=== PATIENT | female | born 1965 | race Caucasian/White ===

== ENCOUNTER 2018-12-10 21:10 | Emergency (ER) | payer BC ==
[~2018-12-10] VITALS: Ht 162.6 cm; Wt 76.3 kg
[~2018-12-10 21:10] MED LIST: ALPR0.25 PO; DULO30CA2 PO; ESLI800T PO; FOLI1TAB21 PO; HYDR200T72 PO; LEVO500T51 PO; METH2.5T PO; METH20TA PO; NICO-449 TD; OLAN5TAB3 PO; VENL150C PO
[2018-12-10 21:12] VITALS: BP 126/79
--- NOTE | 2018-12-10 21:28 | ER.PDOC ---
JES JONES DO Dec 10, 2018 21:28
[2018-12-10] MEDS ORDERED: NS 1000ML 1,000 ML IV ONE (21:30)
--- NOTE | 2018-12-10 21:33 | PCM.EKG ---
[facility] Test Date: 2018-12-10 Test Time: 21:26:07 Pat Name: AGAPITO BHATIA Department: Room: Gender: F Hospital Aide: : 1965 Requested By: JES JONES Order Number: [id number] Reading MD: Jes Jones Measurements Intervals [place] Rate: 85 P: 62 VT: 172 QRS: 52 QRSD: 100 T: 49 QT: 434 QTc: 516 Interpretive Statements Normal sinus rhythm Prolonged QT Abnormal ECG Compared to ECG 02/15/2018 17:57:04 Sinus bradycardia no longer present Electronically Signed On 12-11-2018 22:00:22 [facility] by Jes Jones Please click the below link to view image of tracing.
--- NOTE | 2018-12-10 21:38 | ER.PDOC ---
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 Per , she was "seeing things, and wasn't making sense." Was stumbling some while walking, but did not fall. Pt was arrested earlier this afternoon, for unk. reason. Timing/Duration: 1-3 hours Character of AMS: confused Usually: orientedx3 Decreased Ability to Stand: off balance (slightly stumbling) Prior symptoms/Treatment: No Similar symptoms previous, No Recenly Seen, No Treated by Doctor, No Recently Hospitalized Allergies: Coded Allergies: iodine (Verified Allergy, Unknown, Anaphylaxis Shock, 04/19/16) Home Meds Active Scripts Levofloxacin (LEVAQUIN) 500 Mg Tablet, 500 MG PO DAILY24 for 4 Days, #4 TABLET Prov:WILLIS OLIVAS MD 01/16/18 Nicotine (NICOTINE PATCH) 1 Each Patch.td24, 1 EACH TD DAILY for 14 Days, #14 PATCH Prov:WILLIS OLIVAS MD 01/16/18 Reported Medications Olanzapine (ZYPREXA) 5 Mg Tablet, 1 TAB PO HS, #30 TAB 1 Refill 01/14/18 Duloxetine Hcl (CYMBALTA) 30 Mg Capsule.dr, 1 CAP PO DAILY, #30 CAP 5 Refills 01/14/18 Methylphenidate Hcl (RITALIN) 20 Mg Tablet, 1 TAB PO BID, #60 TAB 01/14/18 Alprazolam (XANAX) 0.25 Mg Tablet, 1 TAB PO TID PRN for ANXIETY, #30 TAB 01/14/18 Eslicarbazepine Acetate (Aptiom) 800 Mg Tablet, 800 MG PO HS, TABLET 01/14/18 Past Medical History Medical History: other (PTSD) Surgical History: cholecystectomy, hysterectomy Social History Drug Use: none, other Review of Systems Constitutional: no symptoms reported Eyes: no symptoms reported Ears, Nose, Mouth, Throat: no symptoms reported Respiratory: shortness of breath (slight) Cardiovascular: no symptoms reported Gastrointestinal: no symptoms reported Genitourinary: no symptoms reported Musculoskeletal: no symptoms reported Skin: no symptoms reported Psychiatric/Neurological: see HPI Endocrine: no symptoms reported Hematologic/Lymphatic: no symptoms reported Physical Exam General Appearance: alert, no distress HEENT: dry mucous membranes Neuro/Psych: other (slightly confused regarding current condition, time) Cranial Nerves: nml as tested Peripheral Exam: motor nml, sensation nml, reflexes nml Neck: supple, non-tender, no carotid bruit Respiratory: no resp distress, breath sounds nml CVS: reg rate & rhythm, heart sounds nml Abdomen: non-tender, no organomegaly, no distention Skin: color nml, no rash, warm/dry Extremities: non-tender, nml ROM, no pedal edema Results/Orders Results/Orders Laboratory Tests Test 12/10/18 21:30 12/10/18 21:35 12/10/18 21:38 12/10/18 22:47 Urine Collection Type CCMS Urine Color YELLOW (YELLOW) Urine Appearance CLEAR (CLEAR) Urine Bilirubin NEGATIVE MG/DL (NEGATIVE) Urine Ketones NEGATIVE (NEGATIVE) Urine Specific [place] 1.025 (1.005-1.035) Urine pH 5 (5.0-6.0) Urine Protein NEGATIVE (NEGATIVE) Urine Urobilinogen NORMAL (NEGATIVE) Urine Nitrate NEGATIVE (NEGATIVE) Urine Leukocyte Esterase NEGATIVE (NEGATIVE) Urine Blood NEGATIVE (NEGATIVE) Urine Glucose NORMAL (NEGATIVE) White Blood Count 12.7 10^3/uL (4.5-11.0) Red Blood Count 3.96 10^6/uL (4.00-5.20) Hemoglobin 13.0 g/dL (12.0-15.0) Hematocrit 38.6 % (36.0-46.0) Mean Corpuscular Volume 97.5 fL (78-100) Mean Corpuscular Hemoglobin 32.8 pg (26-34) Mean Corpuscular Hemoglobin Concent 33.7 g/dL (33-37) Red Cell Distribution Width 14.2 % (11.5-14.5) Platelet Count 324 10^3/uL (150-400) Mean Platelet Volume 9.6 fL (7.8-11.0) Neutrophils (%) (Auto) 57.9 % (41.0-85.0) Lymphocytes (%) (Auto) 33.9 % (24.0-44.0) Monocytes (%) (Auto) 6.0 % (5.0-12.0) Neutrophils # (Auto) 7.4 10^3/uL (1.8-7.7) Lymphocytes # (Auto) 4.3 10^3/uL (1.0-4.8) Monocytes # (Auto) 0.8 10^3/uL (0.3-0.8) Absolute Immature Granulocyte (auto 0.05 10^3 u/L (0-2) Eosinophils % 1.1 % (0.0-5.0) Basophils % 0.7 % (0.0-0.2) Basophils # 0.1 10^3/uL (0.0-0.1) Eosinophil Count 0.1 10^3/uL (0.0-0.2) Prothrombin Time 9.9 SEC (9.8-11.9) Prothrombin Time INR (Non-Therap) 1.0 Activated Partial Thromboplast Time 27.2 SEC (24.67-30.72) Sodium Level 138 mmol/L (132-145) Potassium Level 3.0 mmol/L (3.6-5.2) Chloride Level 102.0 mmol/L (96-109) Carbon Dioxide Level 23.2 mmol/L (20.0-32) Anion Gap 15.8 Blood Urea Nitrogen 11 mg/dL (7-18) Creatinine 1.14 mg/dL (0.59-1.40) Estimated GFR () 59.9 (>/=60) BUN/Creatinine Ratio 9.0 Glucose Level 164 mg/dL (70-110) Calcium Level 8.4 mg/dL (8.4-10.5) Total Bilirubin 0.5 mg/dL (0.2-1.0) Aspartate Amino Transf (AST/SGOT) 34 U/L (0-35) Alanine Aminotransferase (ALT/SGPT) 44 U/L (12-78) Alkaline Phosphatase 133 U/L (50-136) Ammonia 16 umol/L (11-35) Total Creatine Kinase 391 U/L (26-192) Troponin I < 0.02 ng/mL (0.00-0.05) Total Protein 7.7 g/dL (6.4-8.2) Albumin 3.5 g/dL (3.4-5.0) Globulin 4.2 Percent Immature Gran (Cell Imm) 0.40 % (0.00-0.50) Urine Opiates, Qualitative NEGATIVE ng/mL (CUT-OFF:300) Urine Methadone, Qualitative POSITIVE ng/mL (CUT-OFF:300) Urine Amphetamine Qualitative NEGATIVE ng/mL (CUTOFF:1000) Urine Barbiturates, Qualitative NEGATIVE ng/mL (CUT-OFF:200) Urine Phencyclidine Screen POSITIVE ng/mL (CUT-OFF:25) Urine MDMA (Ecstasy), Qualitative NEGATIVE ng/mL (CUT-OFF:300) Urine Benzodiazepines Screen POSITIVE ng/mL (CUT-OFF:200) Urine Cocaine Qualitative NEGATIVE ng/mL (CUT-OFF:300) Ur Tetrahydrocannabinol (THC) Scrn NEGATIVE ng/mL (CUT-OFF:50) Blood Gas Sample Site RT BRACIAL ARTERY Blood Gas pH 7.345 (7.350-7.450) Blood Gas PCO2 39.6 mmHg (35.0-45.0) Blood Gas PO2 63.8 mmHg (75.0-100.0) Blood Gas HCO3 21.1 mmol/L (22.0-26.0) Blood Gas Base Excess -4.2 mmol/L (-2.0-2.0) Baldo Test N/A Arterial Blood Oxygen Saturation 90.3 % (95-) Deoxyhemoglobin 9.4 % (0.2-0.6) Carboxyhemoglobin 2.8 % (0.5-1.5) Methemoglobin 0.0 % (0.2-0.6) Total Hemoglobin 12.2 % (13.5-17.5) Total Oxygen Concentration 15.1 % (13.5-17.5) Lactic Acid (Blood Gas) 2.0 MMOL/L (0.5-1.0) Oxygen Delivery Method (LAB) RA FiO2 21 % (20-101) Bicarbonate 22.3 mmol/L (23-27) Administered Medications Medications (Trade) Dose Ordered Sig/Ramakrishna Route PRN Reason Start Time Stop Time Status Last Admin Dose Admin Sodium Chloride 1,000 ml @ 0 mls/hr Q0M ONCE IV 12/10/18 21:30 12/10/18 21:31 UNV 12/10/18 22:15 Progress Progress Pt tested positive for methadone, PCP and benzos. Takes benzos regularly with prescription. Suspect other drugs as reason for confusion. Does not appear c/w CVA. EKG/XRAY/CT/US EKG: NSR, CA (nml), QRS (nml), no ST T wave changes EKG Comments: slightly prolonged QTc XRAY: chest XRAY Comments: NAD CT Comments: nml head CT; no mass, bleed, lg infarct, or shift Departure Time of Disposition: 23:55 Disposition: 01 HOME, SELF-CARE Impression: Primary Impression: Drug abuse Additional Impression: PTSD (post-traumatic stress disorder) Condition: Stable Referrals: VIVIAN EDWARDS (PCP) PRIMARY CARE PROVIDER Additional Instructions: See your doctor in 1-2 days. Duration or Time Spent with Pa: 35 Problem Qualifiers JES JONES DO Dec 10, 2018 21:38
[2018-12-10 21:41] LABS: BASOPHIL # 0.1 10^3/uL (0.0-0.1); BASOPHIL % 0.7 % (0.0-0.2); EOSINOPHIL # 0.1 10^3/uL (0.0-0.2); EOSINOPHIL % 1.1 % (0.0-5.0); LYMPHOCYTES # 4.3 10^3/uL (1.0-4.8); LYMPHOCYTES % 33.9 % (24.0-44.0); MEAN CELL HGB 32.8 pg (26-34); MEAN CELL HGB CONCENTRATION 33.7 g/dL (33-37); MEAN CORP VOLUME 97.5 fL (78-100); MEAN PLATELET VOLUME 9.6 fL (7.8-11.0); MONOCYTES # 0.8 10^3/uL (0.3-0.8); NEUTROPHIL # 7.4 10^3/uL (1.8-7.7); NEUTROPHILS % 57.9 % (41.0-85.0); RED CELL DISTRIBUTION WIDTH 14.2 % (11.5-14.5); WHITE BLOOD CELL 12.7 10^3/uL (4.5-11.0)
--- NOTE | 2018-12-10 21:56 | DIREP ---
PROCEDURE:CHEST 1 VIEW COMPARISON:[facility], CR, XRAY CHEST SINGLE VW, 02/15/2018, 10:33 PM. INDICATIONS:aloc FINDINGS: LUNGS/PLEURA: Shallow inspiration but no pulmonary infiltrate. VASCULATURE:Normal. Unremarkable pulmonary vasculature. CARDIAC:Normal. No cardiac silhouette abnormality or cardiomegaly. MEDIASTINUM:Normal. No visible mass or adenopathy. BONES:Normal. No fracture or visible bony lesion. OTHER:Negative. CONCLUSION: 1. No acute cardiopulmonary abnormality. Dictated by: Jaspreet Mclaughlin Jr. on 12/10/2018 at 09:55 PM
--- NOTE | 2018-12-10 22:00 | DIREP ---
PROCEDURE:CT HEAD OR BRAIN W/O CONTRAST COMPARISON:[facility], CT, CT HEAD BRAIN W/O CONTRAST, 02/15/2018, 06:07 PM. INDICATIONS:aloc TECHNIQUE:CT images were created without intravenous contrast. Motion artifact degrades the study FINDINGS: VENTRICLES:The ventricles are normal in size and configuration. CEREBRUM:Normal cerebral morphology with appropriate farrar white matter differentiation. CEREBELLUM:Negative. BRAINSTEM:Negative. BASAL CISTERNS:Negative. HEMORRHAGE:No MASS LESION:No ACUTE INFARCT:No SKULL:Normal. SINUSES:Normal. OTHER:None CONCLUSION: 1. No diagnostic abnormality. Dictated by: Jaspreet Mclaughlin Jr. on 12/10/2018 at 09:58 PM
[2018-12-10 22:03] LABS: ALANINE AMINOTRANSFERASE(ML) 44 U/L (12-78); ALKALINE PHOSPHATASE 133 U/L (50-136); ASPARTATE AMINO TRANSFERASE 34 U/L (0-35); CALCIUM 8.4 mg/dL (8.4-10.5); CARBON DIOXIDE 23.2 mmol/L (20.0-32); GLUCOSE 164 mg/dL (70-110)
[2018-12-10] MEDS ORDERED: NS 1000ML 1,000 ML ONE ×2 (22:25→22:45)
[2018-12-10 22:57] LABS: ABG PCO2 39.6 mmHg (35.0-45.0); ABG PH 7.345 (7.350-7.450); BE(B) -4.2 mmol/L (-2.0-2.0); HCO3act 21.1 mmol/L (22.0-26.0); pO2 63.8 mmHg (75.0-100.0)
[2018-12-10 23:31] LABS: APPEARANCE,URINE CLEAR (CLEAR); BILIRUBIN,URINE NEGATIVE (NEGATIVE); UA COLOR YELLOW (YELLOW); UROBILINOGEN,URINE NORMAL (NEGATIVE)
[2018-12-11 01:00] VITALS: BP 109/60
[2018-12-11 02:24] VITALS: BP 109/60
== END 2018-12-11 01:13 | disposition home or self-care (01) ==
LOC: ER 21:10
DX: F43.10 Post-traumatic stress disorder, unspecified (principal); F19.10 Other psychoactive substance abuse, uncomplicated; Z88.8 Allergy status to other drugs, medicaments and biological substances; Z90.49 Acquired absence of other specified parts of digestive tract; Z90.710 Acquired absence of both cervix and uterus; Z79.899 Other long term (current) drug therapy
CPT/HCPCS: 36415; 36600; 70450; 71045; 80053; 80307; 81002; 82140; 82550; 82803; 82948; 84484; 85025; 85610; 85730; 93005; 96360; 99285; J7030 ×2; A4338

== ENCOUNTER 2019-06-15 17:14 | Emergency (ER) | payer BC ==
--- NOTE | 2019-06-15 17:14 | NUR ---
ARRIVAL PT ARRIVED VIA STRETCHER BY [facility] AND [facility] TO ER 1. [facility] WERE CALLED TO ASSIST [facility] FOR POSSIBLE SEIZURE. PT WAS REPORTEDLY FOUND IN FRONT OF HOME BY FAMILY WHO BELIEVED SHE HAD AN UNWITNESSED SEIZURE. [facility] PT WENT PULSELESS AT APPROXIMATELY 1700 IN THEIR PRESENCE AND WAS IN THIRD DEGREE HEART BLOCK. CPR WAS BEGUN BY [facility] AND [facility] AND PT WAS BROUGHT TO ER. PT ARRIVED WITH HIGH QUALITY CPR IN PROGRESS. CAROLINE AIRWAY IN PLACE UPON ARRIVAL, PT BEING VENTILATED VIA AMBU BAG. IO TO RIGHT TIBIA AND 20 GAUGE IV TO RIGHT AC UPON ARRIVAL. CODE BLUE CALLED UPON PT ARRIVAL. SEE EMS REPORT.
--- NOTE | 2019-06-15 17:18 | NUR ---
EPI 1 AMP EPI ADMINISTERED AT THIS TIME PER DR KAPLAN ORDER. HIGH QUALITY CPR CONTINUES FOLLOWING ACLS PROTOCOL. PT BEING VENTILATED BY ESEQUIEL, RT VIA CAROLINE AIRWAY AND AMBU BAG.
--- NOTE | 2019-06-15 17:22 | NUR ---
EPI 1 AMP EPI ADMINISTERED AT THIS TIME. HIGH QUALITY CONTINUES FOLLOWING ACLS PROTOCOL.
--- NOTE | 2019-06-15 17:24 | NUR ---
PULSE CHECK PAUSE FOR PULSE CHECK AT THIS TIME. PULSES NOT PALPATED. DR KAPLAN REQUESTS DOPPLER. HIGH QUALITY CPR RESUMES FOLLOWING ACLS PROTOCOL.
--- NOTE | 2019-06-15 17:25 | NUR ---
PULSE CHECK CPR PAUSED AT THIS TIME FOR PULSE CHECK WITH DOPPLER BY DR KAPLAN. PULSE NOT DETECTED VIA DOPPLER. HIGH QUALITY CPR RESUMES FOLLOWING ACLS PROTOCOL.
--- NOTE | 2019-06-15 17:25 | NUR ---
DR JULES VICENTE PRESENT AT PT BEDSIDE. HIGH QUALITY CPR CONTINUES.
--- NOTE | 2019-06-15 17:28 | NUR ---
EPI 1 AMP EPI ADMINISTERED VIA IV AT THIS TIME. HIGH QUALITY CPR CONTINUES FOLLOWING ACLS PROTOCOL.
--- NOTE | 2019-06-15 17:28 | NUR ---
BICARB 1 AMP BICARB ADMINISTERED AT THIS TIME VIA IV. HIGH QUALITY CPR CONTINUES FOLLOWING ACLS PROTOCOL.
--- NOTE | 2019-06-15 17:29 | NUR ---
PULSE CHECK CPR PAUSED FOR PULSE CHECK AT THIS TIME. NO PULSES PALPABLE. HIGH QUALITY CPR CONTINUES FOLLOWING ACLS PROTOCOL.
--- NOTE | 2019-06-15 17:31 | NUR ---
PULSE CHECK CPR PAUSED AT THIS TIME FOR PULSE CHECK. NO PULSES PALPABLE. HIGH QUALITY CPR CONTINUES FOLLOWING ACLS PROTOCOL.
--- NOTE | 2019-06-15 17:32 | NUR ---
EPI 1 AMP EPI ADMINISTERED AT THIS TIME. HIGH QUALITY CPR CONTINUES FOLLOWING ACLS PROTOCOL.
--- NOTE | 2019-06-15 17:33 | NUR ---
PULSE CHECK PULSE CHECK AT THIS TIME. WEAK RIGHT FEMORAL PULSE PALPATED BY DR VICENTE. CARDIAC ACTIVITY NOTED ON MONITOR. PT CONTINUES TO BE VENTILATED VIA CAROLINE AIRWAY AND AMBU BAG.
--- NOTE | 2019-06-15 17:33 | NUR ---
BICARB 1 AMP BICARB ADMINISTERED AT THIS TIME. HIGH QUALITY CPR CONTINUES FOLLOWING ACLS PROTOCOL.
--- NOTE | 2019-06-15 17:34 | NUR ---
CENTRAL LINE MULTI LUMEN CENTRAL LINE INSERTED TO RIGHT FEMORAL BY DR KAPLAN AT THIS TIME USING STERILE TECHNIQUE.
--- NOTE | 2019-06-15 17:34 | NUR ---
PULSE CHECK ASYSTOLE NOTED ON MONITOR. NO PALPABLE PULSES AT THIS TIME. HIGH QUALITY CPR RESUMES FOLLOWING ACLS PROTOCOL.
--- NOTE | 2019-06-15 17:34 | NUR ---
ATROPINE 1MG ATROPINE ADMINISTERED AT THIS TIME VIA IV. HIGH QUALITY CPR CONTINUES FOLLOWING ACLS PROTOCOL.
--- NOTE | 2019-06-15 17:35 | NUR ---
Note gabe in ED - 06/15/19 at 1846 by SHELLEY PULSE CHECK ASYSTOLE NOTED ON MONITOR. NO PALPABLE PULSES AT THIS TIME. HIGH QUALITY CPR RESUMES FOLLOWING ACLS PROTOCOL.
--- NOTE | 2019-06-15 17:36 | NUR ---
EPI 1 AMP EPI ADMINISTERED AT THIS TIME. HIGH QUALITY CPR CONTINUES FOLLOWING ACLS PROTOCOL.
--- NOTE | 2019-06-15 17:36 | NUR ---
BICARB 1 AMP BICARB ADMINISTERED AT THIS TIME. HIGH QUALITY CPR CONTINUES FOLLOWING ACLS PROTOCOL.
--- NOTE | 2019-06-15 17:38 | NUR ---
CALCIUM CHLORIDE 1GM CALCIUM CHLORIDE ADMINISTERED AT THIS TIME. HIGH QUALITY CPR CONTINUES FOLLOWING ACLS PROTOCOL.
--- NOTE | 2019-06-15 17:41 | NUR ---
PULSE CHECK CPR PAUSED FOR PULSE CHECK AT THIS TIME. NO PALPABLE PULSES. HIGH QUALITY CPR RESUMES FOLLOWING ACLS PROTOCOL.
--- NOTE | 2019-06-15 17:42 | NUR ---
STATUS HIGH QUALITY CPR CONTINUES FOLLOWING ACLS PROTOCOL.
--- NOTE | 2019-06-15 17:42 | NUR ---
FAMILY DR KAPLAN SPEAKING TO PT FAMILY AT THIS TIME REGARDING PT. PT FAMILY AGREES TO TERMINATE EFFORTS.
--- NOTE | 2019-06-15 17:45 | NUR ---
PULSE CHECK CPR PAUSED FOR PULSE CHECK AT THIS TIME. NO PALPABLE PULSES AT THIS TIME. NO CARDIAC ACTIVITY AUSCULTATED VIA STETHOSCOPE. HIGH QUALITY CPR RESUMED FOLLOWING ACLS PROTOCOL.
--- NOTE | 2019-06-15 17:47 | NUR ---
TIME OF CPR PAUSED FOR PULSE CHECK AT THIS TIME. NO PALPABLE PULSES. NO CARDIAC ACTIVITY ON MONITOR. DR KAPLAN CALLED TIME OF AT THIS TIME.
--- NOTE | 2019-06-15 17:57 | NUR ---
DISTANCE EDUCATION FACULTY LIAISON JUDGE MASON NOTIFIED OF BY [facility] AT THIS TIME.
--- NOTE | 2019-06-15 17:58 | ER.PDOC ---
General Chief Complaint: Requesting Medical Care Stated Complaint: CARDIAC ARREST TRAVEL OUT OF US: No Time seen by MD: 14:44 Source: EMS Exam Limitations: clinical condition History of Present Illness Initial Comments sz like activity, became unresposive, initial guidance consultant showed 3rd degree block, then asystole Timing/Duration: 1/2 hour Severity: severe Modifying Factors: improves with other Allergies: Coded Allergies: iodine (Verified Allergy, Unknown, Anaphylaxis Shock, 04/19/16) Home Meds Active Scripts Levofloxacin (LEVAQUIN) 500 Mg Tablet, 500 MG PO DAILY24 for 4 Days, #4 TABLET Prov:WILLIS OLIVAS MD 01/16/18 Nicotine (NICOTINE PATCH) 1 Each Patch.td24, 1 EACH TD DAILY for 14 Days, #14 PATCH Prov:WILLIS OLIVAS MD 01/16/18 Reported Medications Olanzapine (ZYPREXA) 5 Mg Tablet, 1 TAB PO HS, #30 TAB 1 Refill 01/14/18 Duloxetine Hcl (CYMBALTA) 30 Mg Capsule.dr, 1 CAP PO DAILY, #30 CAP 5 Refills 01/14/18 Methylphenidate Hcl (RITALIN) 20 Mg Tablet, 1 TAB PO BID, #60 TAB 01/14/18 Alprazolam (XANAX) 0.25 Mg Tablet, 1 TAB PO TID PRN for ANXIETY, #30 TAB 01/14/18 Eslicarbazepine Acetate (Aptiom) 800 Mg Tablet, 800 MG PO HS, TABLET 01/14/18 Past Medical History Medical History: thyroid disease Surgical History: cholecystectomy, hysterectomy Family History Significant Family History: no pertinent family hx Social History Drug Use: none Reviewed Nursing Reviewed: Vital Signs, Abn. Noted Review of Systems All Other Systems: Reviewed and Negative Physical Exam General Appearance: Other (IN FULL ARREST, CPR BEING PERFORMED) EENT: other (FIXED DILATED PUPIL) Respiratory: other (NO SPOTANEOUS RESPIRATION) CVS: other (NO PULSE) Gastrointestinal: Other Extremities: Other (M) Neurologic/Psychiatric: Other (UNRESPONSIVE ) Central Line Central Line : Central Line Postion: femoral (R) Anesthesia: Results/Orders Results/Orders Orders - OSITO KAPLAN MD Cbc With Auto Diff (06/15/19 18:14) Comprehensive Metabolic Panel (06/15/19 18:14) Creatine Kinase (06/15/19 18:14) Troponin I (06/15/19 18:14) Probnp B-Type Quality Improvement Analyst (06/15/19 18:14) PT (06/15/19 18:14) Partial Thromboplastin Time. (06/15/19 18:14) Helicobacter Pylori (06/15/19 18:14) D-Dimer (06/15/19 18:14) Laboratory Tests Test 06/15/19 17:35 06/15/19 23:25 White Blood Count 21.3 10^3/uL (4.5-11.0) H Red Blood Count 3.74 10^6/uL (4.00-5.20) L Hemoglobin 12.4 g/dL (12.0-15.0) Hematocrit 39.1 % (36.0-46.0) Mean Corpuscular Volume 104.5 fL (78-100) H Mean Corpuscular Hemoglobin 33.2 pg (26-34) Mean Corpuscular Hemoglobin Concent 31.7 g/dL (33-37) L Red Cell Distribution Width 13.4 % (11.5-14.5) Platelet Count 206 10^3/uL (150-400) Mean Platelet Volume 10.2 fL (7.8-11.0) Lymphocytes (%) (Auto) 44.9 % (24.0-44.0) H Monocytes (%) (Auto) 3.2 % (5.0-12.0) L Lymphocytes # (Auto) 9.6 10^3/uL (1.0-4.8) H Monocytes # (Auto) 0.7 10^3/uL (0.3-0.8) Eosinophils % 0.7 % (0.0-5.0) Eosinophil Count 0.1 10^3/uL (0.0-0.2) Prothrombin Time 11.6 SEC (9.4-11.5) H Prothrombin Time INR (Non-Therap) 1.1 Activated Partial Thromboplast Time 83.3 SEC (24.67-30.72) D-Dimer > 35.20 mg/L (0.19-0.49) *H Sodium Level 144 mmol/L (132-145) Potassium Level 5.5 mmol/L (3.6-5.2) H Chloride Level 109.0 mmol/L (96-109) Carbon Dioxide Level 10.3 mmol/L (20.0-32) L Anion Gap 30.2 Blood Urea Nitrogen 9 mg/dL (7-18) Creatinine 2.01 mg/dL (0.59-1.40) *H Estimated GFR () 31.1 (>/=60) BUN/Creatinine Ratio 4.0 Glucose Level 383 mg/dL (70-110) H Calcium Level 8.3 mg/dL (8.4-10.5) L Total Bilirubin 0.4 mg/dL (0.2-1.0) Aspartate Amino Transferase (AST) 528 U/L (0-35) H Alanine Aminotransferase (ALT) 449 U/L (12-78) H Alkaline Phosphatase 165 U/L (50-136) H Total Creatine Kinase 261 U/L (26-192) H Troponin I 0.11 ng/mL (0.00-0.05) H Pro-B-Type Natriuretic Peptide 57 pg/mL (0-125) Total Protein 6.3 g/dL (6.4-8.2) L Albumin 2.6 g/dL (3.4-5.0) L Globulin 3.7 Helicobacter pylori Screen NEGATIVE (NEGATIVE) Differential Total Cells Counted 100 #CELLS Blast Cells % 2 % Segmented Neutrophils 25 % (31-76) L Band Neutrophils 10 % (2-6) H Lymphocytes 54 % (25-36) H Monocytes 8 % (3-9) Basophils 1 % (0-2) Platelet Estimate ADEQUATE Platelet Morphology NORMAL Blood Morphology Comment NORMAL MORPHOLOGY Progress Progress NO PULSE, SPONTANEOUS RESPIRATIONS Course Duration or Total Time Spent w: 35 Vitals & review Data Laboratory Tests Test 06/15/19 17:35 06/15/19 23:25 White Blood Count 21.3 10^3/uL Red Blood Count 3.74 10^6/uL Hemoglobin 12.4 g/dL Hematocrit 39.1 % Mean Corpuscular Volume 104.5 fL Mean Corpuscular Hemoglobin 33.2 pg Mean Corpuscular Hemoglobin Concent 31.7 g/dL Red Cell Distribution Width 13.4 % Platelet Count 206 10^3/uL Mean Platelet Volume 10.2 fL Lymphocytes (%) (Auto) 44.9 % Monocytes (%) (Auto) 3.2 % Lymphocytes # (Auto) 9.6 10^3/uL Monocytes # (Auto) 0.7 10^3/uL Eosinophils % 0.7 % Eosinophil Count 0.1 10^3/uL Prothrombin Time 11.6 SEC Prothrombin Time INR (Non-Therap) 1.1 Activated Partial Thromboplast Time 83.3 SEC D-Dimer > 35.20 mg/L Sodium Level 144 mmol/L Potassium Level 5.5 mmol/L Chloride Level 109.0 mmol/L Carbon Dioxide Level 10.3 mmol/L Anion Gap 30.2 Blood Urea Nitrogen 9 mg/dL Creatinine 2.01 mg/dL Estimated GFR () 31.1 BUN/Creatinine Ratio 4.0 Glucose Level 383 mg/dL Calcium Level 8.3 mg/dL Total Bilirubin 0.4 mg/dL Aspartate Amino Transf (AST/SGOT) 528 U/L Alanine Aminotransferase (ALT/SGPT) 449 U/L Alkaline Phosphatase 165 U/L Total Creatine Kinase 261 U/L Troponin I 0.11 ng/mL Pro-B-Type Natriuretic Peptide 57 pg/mL Total Protein 6.3 g/dL Albumin 2.6 g/dL Globulin 3.7 Helicobacter pylori Screen NEGATIVE Differential Total Cells Counted 100 #CELLS Blast Cells % 2 % Segmented Neutrophils 25 % Band Neutrophils 10 % Lymphocytes 54 % Monocytes 8 % Basophils 1 % Platelet Estimate ADEQUATE Platelet Morphology NORMAL Blood Morphology Comment NORMAL MORPHOLOGY Sepsis Infection Criteria Pres: None Departure Time of Disposition: 18:32 Disposition: 20 Impression: Primary Impression: Cardiopulmonary arrest Condition: Referrals: VIVIAN EDWARDS (PCP) PRIMARY CARE PROVIDER Duration or Time Spent with Pa: 30 M Critical Care Note Total Time (mins): 30 OSITO KAPLAN MD Jun 15, 2019 17:58
--- NOTE | 2019-06-15 18:09 | NUR ---
CONTINUED CPR, MARIZOL KAPLAN AND JULES AT BEDSIDE, SEE CODE SHEET, CODE CALLED BY DR KAPLAN AT 1747 Addendum: 06/15/19 at 1812 by Tamia Saba DIRECTOR OF SOCIAL MEDIA MARKETING RT Amended: Links added.
--- NOTE | 2019-06-15 18:10 | NUR ---
[facility] NOTIFIED OF AT THIS TIME. REFERENCE #: [id number]. SPOKE TO FELIZ MCCOY.
--- NOTE | 2019-06-15 18:26 | NUR ---
JUDGE ISABELLA MASON PRESENT IN ER AT THIS TIME.
--- NOTE | 2019-06-15 18:27 | NUR ---
[facility] PT FAMILY NOTIFIED JUDGE MASON AT THIS TIME THAT THEY HAVE CHOSEN [facility] FOR HOME.
[2019-06-15 18:30] LABS: EOSINOPHIL # 0.1 10^3/uL (0.0-0.2); EOSINOPHIL % 0.7 % (0.0-5.0); HEMOGLOBIN 12.4 g/dL (12.0-15.0); LYMPHOCYTES # 9.6 10^3/uL (1.0-4.8); LYMPHOCYTES % 44.9 % (24.0-44.0); MEAN CELL HGB 33.2 pg (26-34); MEAN CELL HGB CONCENTRATION 31.7 g/dL (33-37); MEAN CORP VOLUME 104.5 fL (78-100); MEAN PLATELET VOLUME 10.2 fL (7.8-11.0); MONOCYTES # 0.7 10^3/uL (0.3-0.8); MONOCYTES % 3.2 % (5.0-12.0); PLATELET COUNT 206 10^3/uL (150-400); RED CELL DISTRIBUTION WIDTH 13.4 % (11.5-14.5); WHITE BLOOD CELL 21.3 10^3/uL (4.5-11.0)
--- NOTE | 2019-06-15 18:32 | NUR ---
CRITICAL LAB CRITICAL LAB CALLED BY MEL; D-DIMER >35.2 DR KAPLAN NOTIFIED.
[2019-06-15 18:36] LABS: CALCIUM 8.3 mg/dL (8.4-10.5); CARBON DIOXIDE 10.3 mmol/L (20.0-32)
--- NOTE | 2019-06-15 19:18 | NUR ---
[facility] PT REMAINS TAKEN TO [facility] AT THIS TIME BY [facility] STAFF.
[2019-06-15 23:25] LABS: BAND NEUTROPHILS 10 % (2-6); BASOPHIL 1 % (0-2); BLAST 2 %; LYMPHOCYTE 54 % (25-36); MONOCYTE 8 % (3-9); SEGMENTED NEUTROPHILS 25 % (31-76)
== END 2019-06-15 17:47 ==
LOC: ER 17:14 → EDBD 17:35 → ER 17:47
DX: I46.9 Cardiac arrest, cause unspecified (principal); R79.1 Abnormal coagulation profile; E07.9 Disorder of thyroid, unspecified; Z90.49 Acquired absence of other specified parts of digestive tract; Z90.710 Acquired absence of both cervix and uterus; Z79.2 Long term (current) use of antibiotics; Z79.899 Other long term (current) drug therapy; Z88.8 Allergy status to other drugs, medicaments and biological substances
CPT/HCPCS: 36415; 80053; 82550; 83880; 84484; 85025; 85379; 85610; 85730; 86677; 92950; 99285; 99291